=== PATIENT | female | born 1995 | race African-American/Black ===

== ENCOUNTER 2024-08-25 14:54 | Emergency (ER) | payer SELFPAY ==
[~2024-08-25] VITALS: Ht 165.1 cm; Wt 60.0 kg
[2024-08-25 15:08] VITALS: BP 149/78; PULSE 104; RESP 18; TEMP 98.4; O2SAT 98
[2024-08-25 17:27] LABS: BASOPHILS % 0.3 % (0.0-2.0); DIFFERENTIAL COMMENT 0; EOSINOPHILS % 0.3 % (0.0-5.0); HEMOGLOBIN. 12.1 g/dL (12.0-16.0); LYMPHOCYTES % 15.3 % (20.0-50.0); MEAN CORPUSCULAR HEMOGLOBIN 29.2 pg (28.0-32.0); MEAN CORPUSCULAR HGB CONC 32.6 g/dL (31.0-37.0); MEAN CORPUSCULAR VOLUME 89.5 fL (81.0-99.0); MEAN PLATELET VOLUME 10.8 fl (7.4-10.4); MONOCYTES % 6.1 % (2.0-8.0); PLATELET 183 x1000/uL (130-400); RED BLOOD CELL COUNT 4.14 mill/uL (4.2-5.4); RED CELL DISTRIBUTION WIDTH 13.3 % (11.6-14.6); WHITE BLOOD COUNT 9.4 x1000/uL (4.5-11.0)
[2024-08-25 17:28] LABS: CHLORIDE 103 mEq/L (98-107); POTASSIUM 3.4 mEq/L (3.5-5.1); SODIUM 133 mEq/L (136-145)
[2024-08-25 17:29] LABS: CARBON DIOXIDE 24 mEq/L (21-32)
[2024-08-25 17:30] LABS: CALCIUM 9.6 mg/dL (8.7-10.4)
[2024-08-25 17:34] LABS: CREATININE 0.7 mg/dL (0.6-1.0); GLUCOSE 75 mg/dL (70-105)
[2024-08-25 17:35] LABS: UREA NITROGEN BLOOD 6 mg/dL (9-23)
[2024-08-25 17:36] LABS: HCG SCREEN NEGATIVE
== END 2024-08-25 18:18 | disposition left against medical advice (07) ==
LOC: ER 14:54
DX: R42 Dizziness and giddiness (principal); M79.10 Myalgia, unspecified site
CPT/HCPCS: 36415; 80048; 84703; 85025; 99283